=== PATIENT | male | born 2000 | race Hispanic/Latino ===

== ENCOUNTER 2025-01-19 16:34 | Emergency (ER) | payer SELFPAY ==
[~2025-01-19] VITALS: Ht 175.3 cm; Wt 97.5 kg
[2025-01-19 16:35] VITALS: TEMP 99.4
[2025-01-19] MEDS ORDERED: AMOX1TAB16 PO (18:00)
[2025-01-19 18:03] VITALS: BP 136/51; PULSE 126; RESP 17; O2SAT 100
--- NOTE | 2025-01-19 18:04 | ERN ---
ED Note History of Present Illness Stated Complaint: PAIN AND SWELLING TO RIGHT JAW Chief Complaint: Dental Problem Time Seen by MD: 16:35 Time Seen by Midlevel: 16:38 Dictation: 24-year-old male with no past medical history coming in with complaints of tooth pain and facial swelling. Patient states he has been in ED Cheetos, after eating was picking at his tooth and put oragel. Patient states shortly after putting oragel he began with a burning sensation and woke up with the bottom of his jaw swollen. Denies any fever, nausea vomiting, headache. Allergies: Coded Allergies: No Known Drug Allergies (Unverified Allergy, Unknown, 01/19/25) Home Meds Active Scripts Amoxicillin/Potassium Clav (Amox Tr-K Clv 875-125 mg Tab) 875 Mg-125 Mg Tablet, 1 EACH PO BID for 5 Days, #10 TAB 0 Refills Prov:TIFFANIE KOCH NP 01/19/25 Past Medical History Past Medical History: No Pertinent History Surgical History: None Review of System Dictation Constitutional: Negative for fever,chills, and weight loss Eyes: Negative for injury, pain,redness, and discharge ENT: Negative for injury,pain or swelling, right lower molar pain, Cardiovascular: Negative for chest pain, palpitations, and edema Respiratory: Negative for shortness of breath, cough, and wheezing, Abdomen/GI: Negative for abdominal pain, nausea, vomiting, diarrhea, and constipation Back: Negative for injury and pain : Negative for injury, bleeding and discharge MS/Extremity: Negative for injury and deformity Skin: Negative for rash, and discoloration Neuro: Negative for headache, weakness, numbness, tingling, and seizure Psych: Negative for suicide ideation, homicidal ideation, and hallucinations Review of Systems: was completed Initial Vital Sign VS Vital Signs Date Time Temp Pulse Resp B/P (MAP) Pulse Ox O2 Delivery O2 Flow Rate FiO2 01/19/25 16:35 99.3 108 16 147/93 97 Room Air 01/19/25 18:03 0 21 Physical Exam Dictation General: awake, alert, NAD Head/Face: Normocephalic, atraumatic Eyes: PERRL, EOMI, vision at baseline ENT: oral cavity clear, TMs clear, no signs of infection, there is pain when I palpate the right lower 1st molar. There is an area of swelling noted to the gum area. consistent with a dental abscess Neck: Trachea midline, supple, no nuchal rigidity Cardiovascular: RRR, normal S1/S2, No MRGs, no JVD Respiratory: CTAB, no respiratory distress, No rales or wheezes Abdomen: Soft, non-tender, non-distended, normal bowel sounds, no guarding or rebound. Skin: Warm, dry, normal turgor, no rash MS/Extremity: Pulses equal, no cyanosis, neurovascular intact, FROM Neuro: COAx4, GCS 15, strength 5/5, CN 2-12 intact, normal cerebellar exam, normal gait, Psych: Normal behavior, mood, and affect normal ED Course ED Course Orders Procedure Category Date Status Time Ketorolac PHA 01/19/25 Complete Tromethamine 15mg/Ml 17:03 Dexamethasone 4mg/Ml PHA 01/19/25 Complete 1ml Vial (Dexametha 18:00 Current Medications Medications (Trade) Dose Ordered Sig/Blanca Route PRN Reason Start Time Stop Time Status Last Admin Dose Admin Dexamethasone Sodium Phosphate (dexaMETHasone 4MG/ML 1ML VIAL) 6 mg ONCE ONCE IM 01/19/25 18:00 01/19/25 18:04 DC 01/19/25 18:15 Ketorolac Tromethamine (toRADol) 15 mg ONCE STAT IM 01/19/25 17:03 01/19/25 17:06 DC 01/19/25 17:13 Vital Signs Date Time Temp Pulse Resp B/P (MAP) Pulse Ox O2 Delivery O2 Flow Rate FiO2 01/19/25 18:03 126 17 136/51 100 Room Air* 0 21 01/19/25 16:35 99.3 108 16 147/93 97 Room Air Medical Decision Making MDM MDM: 24-year-old male with no past medical history coming in with complaints of tooth pain and facial swelling. Patient states he has been in ED Cheetos, after eating was picking at his tooth and put oragel. Patient states shortly after putting oragel he began with a burning sensation and woke up with the bottom of his jaw swollen. Denies any fever, nausea vomiting, headache. See I and D procedure for more info. Patient states he has not appointment with the dentist tomorrow. We will prescribe into some Augmentin and some pain medication. Educated patient to follow up with a dentist and return here if he has any worsening symptoms. Patient verbalized understanding, answered all questions. Differential diagnosis: Dental caries, hit patient is cellulitis, dental abscess Rationale: Tests considered and ordered secondary to shared decision making include: Previous outside records reviewed: Old ER visits. Risk of complication and/or morbidity or mortality of patient management: None Medications-Per medication reconciliation Need for hospitalization: Patient does not meet criteria for hospitalization. Need for emergency major/minor surgery: No There are no social concerns with this patient. Prescription drug management Prescriptions will include symptomatic care Patient's prior external medical records from other ER visits were reviewed by me as indicated. Prior testing and results from previous visits were reviewed. Prior tests were taken into account with medical decision making and resource utilization, independent historian/historians were used to obtain complete medical history. I independently interpreted the test that were performed, results were reviewed by me and considered findings on radiology if ordered. Medical management and examination interpretation discussions were had by me with other qualified healthcare professionals as indicated for the patient's care. Procedure Blade Size: 11 (Right lower dental abscess drained with an #11 blade, scant amount of purulent drainage. No packing needed.) DX & DISP Disposition: Discharge Departure Impression: Primary Impression: Dental abscess Condition: Stable Scripts Amoxicillin/Potassium Clav (Amox Tr-K Clv 875-125 mg Tab) 875 Mg-125 Mg Tablet 1 EACH PO BID for 5 Days, #10 TAB 0 Refills Prov: TIFFANIE KOCH NP 01/19/25 Additional Instructions: Take antibiotic as prescribed. Please keep your appointment with your dentist tomorrow. Return to the hospital if you have any worsening symptoms. Referrals: SELF,REFERRAL (PCP) Time of Disposition: 17:59 I have reviewed the case, and I agree with, Diagnosis and Plan TIFFANIE KOCH NP Jan 19, 2025 18:04 MIL GONZALEZ DO Jan 19, 2025 18:31
== END 2025-01-19 18:23 | disposition home or self-care (01) ==
LOC: EDH 16:34
DX: K04.7 Periapical abscess without sinus (principal)
CPT/HCPCS: 99284; 41800; 96372 ×2; J1100; J1885